=== PATIENT | male | born 1975 | race Caucasian/White ===

== ENCOUNTER 2022-10-18 15:49 | Emergency (ER) | payer OTHER, SELFPAY ==
[2022-10-18 16:23] VITALS: BP 173/93; PULSE 105; RESP 18; TEMP 36.8; O2SAT 98; BMI 27.2
--- NOTE | 2022-10-18 16:40 | XRR_ITS ---
PROCEDURE INFORMATION: Exam: XR Left Finger(s) Exam date and time: 10/18/2022 4:49 PM Age: 47 years old Clinical indication: Injury or trauma; Other: Crush injury; Crushing; Left; Little finger; Additional info: Injury, attn 5th digit- distal. Crush injury TECHNIQUE: Imaging protocol: Radiologic exam of the left fingers. Views: Minimum 2 views. COMPARISON: No relevant prior studies available. FINDINGS: Bones/joints: Fifth distal phalangeal tuft mildly displaced fracture. Soft tissues: 6.8 mm linear radiodensity seen in the soft tissues overlying the 5th metacarpal ulnar aspect defect with an additional linear radiodensity as well as a punctate radiodensity seen within the soft tissues overlying the radial aspect of the hand on a single oblique image. XR/XR finger LT min 2V [id number] IMPRESSION: 1. Fifth distal phalangeal tuft mildly displaced fracture. 2. 6.8 mm linear radiodensity seen in the soft tissues overlying the 5th metacarpal ulnar aspect defect with an additional linear radiodensity as well as a punctate radiodensity seen within the soft tissues overlying the radial aspect of the hand on a single oblique image.
[2022-10-18] MEDS: tetanus-dipt-pertussis 0.5 mL SDV IM (17:11)
--- NOTE | 2022-10-18 17:12 | ED_ITS ---
HPI - Wound/Laceration General: Chief Complaint: Wound/Laceration Stated Complaint: finger injury Time Seen by Provider: 10/18/22 17:11 History of Present Illness: Pt is a 47 y/o Male who comes to the ED with Finger injury. Injury occurred just prior to arrival. Pt accidentally smashed his Left 5th digit in truck door. pt states that it door hit naill and pulled the base of nail out of place. Patient rates his pain currently a 10 out of 10. Patient is not up-to-date on his teta nus. Associated symptoms: Denies chills, fever(s), nausea or vomiting Review of Systems Const: Denies: fever(s), chills or fatigue Eyes: Denies: change in vision or eye discomfort ENMT: Denies: throat pain, odynophagia, nasal discharge or nasal congestion Card: Denies: chest pain, palpitations, edema, swelling of feet/ankles, dyspnea on exertion or orthopnea Resp: Denies: dyspnea, productive cough or non-productive cough GI: Denies: abdominal pain, nausea, vomiting, diarrhea, constipation or hematochezia : Denies: flank pain, difficulty urinating, dysuria or hematuria Musc: Reports: extremity pain (distal end of Left 5th digit); Denies: neck pain, back pain or extremity swelling Skin/Breast: Denies: rash or new lesions Neuro: Denies: headache(s), numbness in extremities or weakness in extremities [facility] ED PFSH: Medical History Psoriasis Surgical History No pertinent past surgical history Social History Smoking and tobacco status: current every day smoker Alcohol intake: never Substance/Drug Use: never Physical Exam Const: COMMON NORMALS: no acute distress, patient oriented x3 and alert HENMT: COMMON NORMALS: normocephalic HEAD & SCALP: normocephalic MOUTH: Normal oral and palatal mucosa present THROAT: posterior oropharynx normal and uvula midline Neck/C-Spine: COMMON NORMALS: supple GENERAL: Yes normal visual inspection Resp: COMMON NORMALS: normal respiratory effort, No retractions, No use of accessory muscles and clear to auscultation bilaterally AUSCULTATION: clear to auscultation bilaterally Cardio: COMMON NORMALS: regular rate, regular rhythm, S1 normal heart sound present, S2 normal heart sound present, No gallops present (Cardio), No clicks present (Cardio), No murmurs present (Cardio) and Peripheral pulses 2+ throughout RATE: regular rate RHYTHM: regular rhythm HEART SOUNDS: S1 normal heart sound present and S2 normal heart sound present PERIPHERAL PULSES: Peripheral pulses 2+ throughout GI: COMMON NORMALS: Normal to inspection, nondistended, normoactive bowel sounds present, Soft to palpation, non-tender and no masses PALPATION: Yes Soft to palpation : COMMON NORMALS: Yes no CVA tenderness BLADDER/KIDNEY EXAM: Yes no CVA tenderness Back/Pelvis: COMMON NORMALS: no CVA tenderness Extremity: NARRATIVE EXTREMITY EXAM: Left hand fifth digit?distal end off finger skin avulsion and nail lifted from the matrix and avulsion of nail fold skin. No active bleeding noted. No signs of infection. No laceration to suture. Neuro: COMMON NORMALS: patient oriented x3 SENSORIUM/ORIENTATION: Yes alert GAIT: Yes Normal gait present Skin: GENERAL SKIN EXAM: dry skin Procedures Nerve Block Nerve Block 1: Time out performed: Yes Local Anesthetic: lidocaine 2% Amount of anesthesia used (mL): 6 Side: left Nerve Blocks: digital (Fifth digit) Procedure Successful: Yes Patient Tolerated Procedure: well Complications: none Course Vital Signs: Vital signs: Vital Signs Temperature 98.2 F 10/18/22 16:23 Pulse Rate 105 H 10/18/22 16:23 Respiratory Rate 18 10/18/22 16:23 Blood Pressure 173/93 10/18/22 16:23 Pulse Oximetry 98 10/18/22 16:23 Oxygen Delivery Me thod Room Air 10/18/22 16:23 MDM - Wound/Laceration Medical Decision Making Pt is a 47 y/o Male who comes to the ED with Finger injury. Injury occurred just prior to arrival. Pt accidentally smashed his Left 5th digit in truck door. pt states that it door hit naill and pulled the base of nail out of place. Patient rates his pain currently a 10 out of 10. Patient is not up-to-date on his tetanus. Left hand fifth digit?distal end off finger skin avulsion and nail lifted from the matrix and avulsion of nail fold skin. No active bleeding noted. No signs of infection. No laceration to suture. Digital block performed with lidocaine 2% and nurse was able to irrigate and clean finger injury extensively with normal saline and beta iodine. Triple antibiotic ointment was then applied on finger and and Vaseline gauze placed along with a finger splint. I placed an order with case management for patient referred to Ortho for follow-up on open finger fracture to make sure it is healing well. Patient was given a shot of Rocephin here in the ED and updated tetanus. He was stable for discharge home and diagnosed with a open distal phalanx finger fracture and injury of nailbed of finger on left hand. He was sent home with a prescription for ibuprofen 800 mg and antibiotic. Return to ED precautions given. Patient understood and agreed with plan. Lab Data Radiology Impressions Finger X-Ray 10/18/22 16:40 IMPRESSION: 1. Fifth distal phalangeal tuft mildly displaced fracture. 2. 6.8 mm linear radiodensity seen in the soft tissues overlying the 5th metacarpal ulnar aspect defect with an additional linear radiodensity as well as a punctate radiodensity seen within the soft tissues overlying the radial aspect of the hand on a single oblique image. Discharge Plan Discharge Patient Disposition: Home Clinical Impression: Open fracture of distal phalanx of digit of left hand Injury of nail bed of finger of left hand Qualifiers: Encounter type: initial encounter Qualified Code(s): S69.92XA - Unspecified injury of left wrist, hand and finger(s), initial encounter Condition: Stable Prescriptions: New cephalexin 500 mg capsule 500 mg PO Q6H 7 Days Qty: 28 0RF ibuprofen 800 mg tablet 800 mg PO Q8H PRN (Reason: pain) Qty: 30 0RF No Action fenofibrate nanocrystallized [Tricor] 145 mg tablet 145 mg PO DAILY ketoconazole 2 % shampoo 1 applic topical .2 x weekly Qty: 120 3RF Rx Instructions: Lather into scalp 2 times weekly. Allow to sit on scalp for 5 minutes before rinsing. clobetasol 0.05 % solution 1 applic topical DAILY Qty: 50 3RF Rx Instructions: to scalp as needed hydrocortisone 2.5 % ointment 1 applic topical BID PRN (Reason: skin irritation) Qty: 453.6 0RF Rx Instructions: To groin area x2 weeks alternating with calcipotriene calcipotriene 0.005 % ointment 1 applic topical BID Qty: 120 1RF Rx Instructions: rub in gently and completely x 2 weeks to groin alternating with hydrocortisone Discharge Orders: Discharge ED (Routine); Ordered 10/18/22 Ordered By: Robert Olea Referrals: Israel Calvert MD [Primary Care Provider] - Discharge Diet: Regular Discharge Activity: Limit activity as instructed Patient Instructions: Finger Fracture (ED) Activity Restrictions/Additional Instructions: Follow-up with medical provider as directed. Case management should contact you in the next several days to set up an appointment with Ortho for follow-up on open finger fracture. Take medications as prescribed. Clean finger daily with soap and water then apply triple antibiotic ointment on wound and cover with bandage and wear splint. Return to the ER or your medical provider if condition worsens. Please read and understand discharge instructions. Thank you for choosing [facility] for your healthcare needs today. Please realize this is an emergency room and that we are providing you with a medical screening exam and this may not be complete and all inclusive of all the testing and or work up that you may need to determine your ailment or severity of your illness. It is very important that you follow up as instructed or that you return to the Emergency Department should you have concerns or if your condition changes or worsens in any way. Stand Alone Forms: Work/School Release Coding Level of Care Code ED Manager [employer] Marketing for Mirella Pierre
[2022-10-18] MEDS: neomycin-poly-bacitracin oint 28 gm 1 APPLIC TOPICAL (18:33)
[2022-10-18] MEDS: cefTRIAXone 1,000 MG in water for injection-sterile 2.1 ML 2.1 MG IM (18:33)
[2022-10-18] MEDS: lidocaine 2% INJ 20 mL INJECTION (18:33)
--- NOTE | 2022-10-19 08:10 | PC.NURSE ---
Addendum entered by Cherie Teran RN 10/19/22 15:03: Ortho- attempt made to contact patient - number not accepting msgs at this time - will mail letter also to call our clinic to schedule w/ valerio edwards (cecilia supervising) Original Note: Patient seen in the ED on 10/19/22 and referred to ortho for finger fracture. TCM sent message to call pt with an appt.
== END 2022-10-18 18:35 | disposition home or self-care (01) ==
PROVIDERS: Emergency Provider Physician Assistant; PCP Family Medicine
DX: S62.637B Displaced fracture of distal phalanx of left little finger, initial encounter for open fracture (principal); F17.210 Nicotine dependence, cigarettes, uncomplicated; W23.0XXA Caught, crushed, jammed, or pinched between moving objects, initial encounter; Z23 Encounter for immunization
CPT/HCPCS: 73140; 90471; 90715; 96372; 99284; J0696

== ENCOUNTER 2022-12-07 07:50 | Emergency (ER) | payer OTHER, SELFPAY ==
[2022-12-07] VITALS (50 sets, daily range): BP systolic 113–156; BP diastolic 74–99; PULSE 75–104; RESP 13–26; TEMP 37.1; O2SAT 93–100; BMI 26.5
--- NOTE | 2022-12-07 07:54 | XRR_ITS ---
PROCEDURE INFORMATION: Exam: XR Chest Exam date and time: 12/07/2022 8:07 AM Age: 47 years old Clinical indication: Angina pectoris; Patient HX: Chest pain, left arm numbness TECHNIQUE: Imaging protocol: Radiologic exam of the chest. Views: 1 view. COMPARISON: No relevant prior studies available. FINDINGS: Lungs: Unremarkable. No consolidation. Pleural spaces: Unremarkable. No pleural effusion. No pneumothorax. Heart/Mediastinum: Unremarkable. No cardiomegaly. Bones/joints: Unremarkable. XR/XR chest 1V portable [id number] IMPRESSION: No acute findings.
--- NOTE | 2022-12-07 07:59 | ECG_ITS ---
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 Measurements Intervals [place] Rate: 84 P: 56 AZ: 184 QRS: -9 QRSD: 108 T: 25 QT: 349 QTc: 413 Interpretive Statements SINUS RHYTHM No previous ECG available for comparison Electronically Signed On 12-07-2022 9:51:55 CDT by Gudelia Fortune M.D. [id number]
[2022-12-07 08:36] LABS: Basophils % 0.6 %; Eosinophils # 0.1 10^3/uL (0.0-0.8); Eosinophils % 1.1 %; Hematocrit 45.4 % (42.0-52.0); Hemoglobin 15.4 g/dL (11.7-16.6); Lymphocytes % 28.7 %; Mean Corpuscular HGB Conc 33.9 g/dL (30.0-36.0); Mean Corpuscular Hemoglobin 31.2 pg (28.0-34.0); Mean Corpuscular Volume 91.9 fl (80-94); Mean Platelet Volume 9.8 fL (7.4-10.4); Monocytes # 0.5 10^3/uL (0.2-0.9); Monocytes % 7.1 %; Neutrophils # 4.36 10^3/uL (1.8-7.7); Neutrophils % 62.4 %; Nucleated Red Blood Cells % 0 %; Platelet Count 279 10^3/cmm (130-400); Red Blood Count 4.94 10^6/uL (4.1-5.3); Red Cell Distribution Width 13.2 % (12.1-15.1)
[2022-12-07 08:48] LABS: Troponin(5th) Baseline 6 ng/L (0-15)
[2022-12-07 08:49] LABS: Alanine Aminotransferase 24 U/L (0-41); Albumin Level 4.6 g/dL (3.5-5.2); Alkaline Phosphatase 54 U/L (40-130); Anion Gap 15.8 (5-19); Aspartate Amino Transferase 28 U/L (0-40); Blood Urea Nitrogen 12 mg/dL (6-20); Calcium 9.5 mg/dL (8.5-10.5); Carbon Dioxide 20 mmol/L (22-29); Chloride 101 mmol/L (98-107); Globulin 2.7 g/dL (1.3-4.6); Glomerular Filtration Rate 103.6 mL/min (90-130); Glucose 103 mg/dL (65-115); Osmolality Calculated 276 mOsm/kg (285-295); Potassium 3.8 mmol/L (3.5-5.1); Sodium 133 mmol/L (136-145); Total Bilirubin 0.5 mg/dL (0.15-1.2); Total Protein 7.3 g/dL (6.6-8.7)
--- NOTE | 2022-12-07 09:38 | ED_ITS ---
HPI - Chest Pain General: Chief Complaint: Chest Pain Stated Complaint: chest Pain, Arm numbness Time Seen by Provider: 12/07/22 07:53 Source: patient Mode of arrival: ambulatory History of Present Illness: 47-year-old male presents emergency room complaining of chest pain for the last 2 days. States he was working outside when it started. He got little worse when he went to work he has really noticed anything that helps it. He has been associated with some shortness of breath. Pain has decreased now. He states that causes some numbness and tingling in his left arm as well. No known history of coronary disease no previous cardiac evaluation. MD complaint: chest pain Onset (ago): day(s) (2) Timing of current episode: episodic Onset: during exertion Pain location: left chest Pain radiation: left arm Severity: mild Quality: aching and heaviness Relieving factors: nothing Exacerbating factors: exertion Associated symptoms: Reports dyspnea; Deny abdominal pain, diaphoresis, fever(s), leg edema, nausea, palpitations, sense of impending doom, syncope or vomiting Treatment prior to arrival: none Review of Systems Const: Denies: fever(s) or diaphoresis Card: Reports: chest pain; Denies: palpitations, irregular heart rhythm, edema or syncope Resp: Reports: dyspnea; Denies: productive cough, non-productive cough or wheezing GI: Denies: abdominal pain, nausea or vomiting : Denies: flank pain, dysuria, urinary frequency or urinary urgency Skin/Breast: Denies: rash or pruritus PFS ED PFSH: Medical History Psoriasis Surgical History No pertinent past surgical history Social History Smoking and tobacco status: current every day smoker Alcohol intake: never Substance/Drug Use: never Physical Exam Const: COMMON NORMALS: no acute distress GENERAL APPEARANCE: cooperative and comfortable ORIENTATION/CONSCIOUSNESS: Yes awake, Yes oriented to person, Yes oriented to place and Yes oriented to time HENMT: COMMON NORMALS: normocephalic, atraumatic and hearing grossly normal bilaterally HEAD & SCALP: normocephalic and atraumatic Resp: COMMON NORMALS: normal respiratory effort, No retractions, No use of accessory muscles and clear to auscultation bilaterally AUSCULTATION: clear to auscultation bilaterally Cardio: COMMON NORMALS: regular rate, regular rhythm and No murmurs present (Cardio) RATE: regular rate RHYTHM: regular rhythm GI: COMMON NORMALS: Soft to palpation and No hepatosplenomegaly present AUSCULTATION: Yes normoactive bowel sounds PALPATION: Yes Soft to palpation, No Tenderness to palpation present (GI), No Guarding due to palpation present (GI) and Yes No hepatosplenomegaly present Extremity: COMMON NORMALS: normal to inspection, capillary refill normal, no clubbing, cyanosis or edema, no calf tenderness and no pedal edema Neuro: SENSORIUM/ORIENTATION: Yes oriented to person, Yes oriented to place and Yes oriented to time Skin: COMMON NORMALS: no rashes or lesions noted GENERAL SKIN EXAM: no rashes or lesions noted Course Vital Signs: Vital signs: Vital Signs Temperature 98.7 F 12/07/22 07:53 Pulse Rate 92 12/07/22 12:30 Respiratory Rate 13 12/07/22 12:30 Blood Pressure 118/74 12/07/22 12:35 Pulse Oximetry 96 12/07/22 12:30 Oxygen Delivery Me thod Room Air 12/07/22 12:30 MDM - Chest Pain Medical Decision Making Serial troponins negative. EKG does not show any acute changes. Discharge patient home and arrange for outpatient exercise stress test recommend starting baby aspirin daily. Also start pantoprazole 40 mg daily. Medical Records I reviewed the patient's medical records. Lab Data I reviewed the patient's lab results. 12/07/22 08:19 12/07/22 08:19 Radiology Impressions Chest X-Ray 12/07/22 07:54 IMPRESSION: No acute findings. Laboratory Results WBC 7.0 10^3/uL (4.0-10.0) 12/07/22 08:19 RBC 4.94 10^6/uL (4.1-5.3) 12/07/22 08:19 Hgb 15.4 g/dL (11.7-16.6) 12/07/22 08:19 Hct 45.4 % (42.0-52.0) 12/07/22 08:19 MCV 91.9 fl (80-94) 12/07/22 08:19 MCH 31.2 pg (28.0-34.0) 12/07/22 08:19 MCHC 33.9 g/dL (30.0-36.0) 12/07/22 08:19 RDW 13.2 % (12.1-15.1) 12/07/22 08:19 Plt Count 279 10^3/cmm (130-400) 12/07/22 08:19 MPV 9.8 fL (7.4-10.4) 12/07/22 08:19 Neut % (Auto) 62.4 % 12/07/22 08:19 Lymph % (Auto) 28.7 % 12/07/22 08:19 [place] % (Auto) 7.1 % 12/07/22 08:19 Eos % (Auto) 1.1 % 12/07/22 08:19 Baso % (Auto) 0.6 % 12/07/22 08:19 Neut # (Auto) 4.36 10^3/uL (1.8-7.7) 12/07/22 08:19 Lymph # (Auto) 2.0 10^3/uL (0.8-4.8) 12/07/22 08:19 [place] # (Auto) 0.5 10^3/uL (0.2-0.9) 12/07/22 08:19 Eos # (Auto) 0.1 10^3/uL (0.0-0.8) 12/07/22 08:19 Baso # (Auto) 0.0 10^3/uL (0.0-0.1) 12/07/22 08:19 Nucleated RBC % (auto) 0 % 12/07/22 08:19 Nucleated RBCs # 0.0 /100WBC 12/07/22 08:19 Sodium 133 mmol/L (136-145) L 12/07/22 08:19 Potassium 3.8 mmol/L (3.5-5.1) 12/07/22 08:19 Chloride 101 mmol/L (98-107) 12/07/22 08:19 Carbon Dioxide 20 mmol/L (22-29) L 12/07/22 08:19 Anion Gap 15.8 (5-19) 12/07/22 08:19 BUN 12 mg/dL (6-20) 12/07/22 08:19 Creatinine 0.8 mg/dL (0.7-1.2) 12/07/22 08:19 GFR Calculation 103.6 mL/min (90-130) 12/07/22 08:19 Glucose 103 mg/dL (65-115) 12/07/22 08:19 Calculated Osmolality 276 mOsm/kg (285-295) L 12/07/22 08:19 Calcium 9.5 mg/dL (8.5-10.5) 12/07/22 08:19 Total Bilirubin 0.5 mg/dL (0.15-1.2) 12/07/22 08:19 AST 28 U/L (0-40) 12/07/22 08:19 ALT 24 U/L (0-41) 12/07/22 08:19 Alkaline Phosphatase 54 U/L (40-130) 12/07/22 08:19 Troponin T Baseline 6 ng/L (0-15) 12/07/22 08:19 Troponin T 120 Minute 6.00 ng/L (0-15) 12/07/22 10:36 Delta Troponin T 0 ABS# (0-10) 12/07/22 10:36 Total Protein 7.3 g/dL (6.6-8.7) 12/07/22 08:19 Albumin 4.6 g/dL (3.5-5.2) 12/07/22 08:19 Globulin 2.7 g/dL (1.3-4.6) 12/07/22 08:19 Discharge Plan Discharge Patient Disposition: Home Clinical Impression: Atypical chest pain Condition: Stable Prescriptions: New pantoprazole 40 mg tablet,delayed release (DR/EC) 40 mg PO QAM 56 Days Qty: 56 0RF aspirin 81 mg tablet,delayed release (DR/EC) 81 mg PO DAILY Qty: 30 0RF No Action fenofibrate nanocrystallized [Tricor] 145 mg tablet 145 mg PO DAILY ketoconazole 2 % shampoo 1 applic topical .2 x weekly Qty: 120 3RF Rx Instructions: Lather into scalp 2 times weekly. Allow to sit on scalp for 5 minutes before rinsing. clobetasol 0.05 % solution 1 applic topical DAILY Qty: 50 3RF Rx Instructions: to scalp as needed hydrocortisone 2.5 % ointment 1 applic topical BID PRN (Reason: skin irritation) Qty: 453.6 0RF Rx Instructions: To groin area x2 weeks alternating with calcipotriene calcipotriene 0.005 % ointment 1 applic topical BID Qty: 120 1RF Rx Instructions: rub in gently and completely x 2 weeks to groin alternating with hydrocortisone ibuprofen 800 mg tablet 800 mg PO Q8H PRN (Reason: pain) Qty: 30 0RF Discharge Orders: Discharge ED (Routine); Ordered 12/07/22 Ordered By: Rosalino Garcia Referrals: Israel Calvert MD [Primary Care Provider] - Discharge Diet: Usual diet Discharge Activity: Increase activity as tolerated Patient Instructions: Opioid Safety, Pain Management Activity Restrictions/Additional Instructions: You are seen today for chest pain your heart enzymes and your EKGs were normal. Recommend you start a baby aspirin daily and pantoprazole 40 mg daily Case management make arrangements for an outpatient graded exercise test. Coding Level of Care Code ED Table Tender Sludge for Mirella Pierre
--- NOTE | 2022-12-07 10:07 | ECG_ITS ---
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 Measurements Intervals [place] Rate: 85 P: 57 AZ: 185 QRS: -11 QRSD: 99 T: 36 QT: 349 QTc: 417 Interpretive Statements SINUS RHYTHM Compared to ECG 12/07/2022 07:59:39 No significant changes Electronically Signed On 12-07-2022 11:12:29 CDT by Gudelia Fortune M.D. [id number]
[2022-12-07 11:15] LABS: Troponin 5 2HR Delta 0 ABS# (0-10)
--- NOTE | 2022-12-09 11:25 | DCPLANNER ---
manager copy had message to schedule an outpatient stress test for patient. manager copy faxed signed order to centralized scheduling, who will call patient with appointment information.
== END 2022-12-07 12:40 | disposition home or self-care (01) ==
PROVIDERS: Physician Assistant; Emergency Provider Family Medicine; PCP Family Medicine
DX: R07.89 Other chest pain (principal); Z79.899 Other long term (current) drug therapy; Z79.82 Long term (current) use of aspirin
CPT/HCPCS: 36415; 71045; 80053; 84484; 85025; 93005; 99285